=== PATIENT | male | born 1965 | race Caucasian/White ===

== ENCOUNTER 2016-04-24 23:40 | Emergency (ER) | payer MEDICAID ==
--- NOTE | 2016-04-25 00:01 | ED Physician Chart ---
Chief Complaint/HPI - Patient Information Date Seen:: 04/24/16 Time Seen:: 23:55 Chief Complaint:: right foot pain History of Present Illness:: tripped and fell earlier today fracturing right foot. Splint placed at [facility]. Patient states he does not have the money to buy the [place] which was prescribed. Historian:: Patient Review of Systems - Review of Systems General/Constitutional: No fever, No chills Skin: No skin lesions Head: No headache Eyes: No loss of vision ENT: No earache Neck: No neck pain Cardio Vascular: No chest pain, No palpitations Pulmonary: No SOB GI: No nausea, No vomiting G/U: No dysuria, No hematuria Musculoskeletal: Bone or joint pain Psychiatric: No prior psych history, No depression, No anxiety Hematopoietic: No bruising Allergic/Immuno: No urticaria Neurological: No syncope Past Medical History - Past Medical History Past Medical History: DM Family History: Heart disease Social History: Non Smoker, Alcohol Surgical History: other (right hip) Psychiatricy History: None Medication: Reviewed Physical Exam - Physical Examination General/Constitutional: Well-developed, well-nourished, Alert, No distress Head: Atraumatic Eyes: Lids, conjuctiva normal, PERRL Skin: Nl inspection, No rash ENMT: External ears, nose nl Neck: No nuchal rigidity Respiratory: Nl effort/Exclusion, Clear to Auscultation, No Wheeze/Rhonchi/Rales Cardio Vascular: RRR GI: No tenderness/rebounding/guarding, No organomegaly : No CVA tenderness Other Extremities comments:: short leg posterior splint right leg Neuro/Psych: Alert/oriented Misc: Normal back ED Septic Shock - . Is Septic Shock (SBP<90, OR Lactate>4 mmol\L) present?: No Reassessment (Disposition) - Reassessment Reassessment Condition:: Unchanged - Diagnosis Diagnosis:: fracture right foot - Aftercare/Follow up Instructions Aftercare/Follow-Up Instructions:: Refer to Discharge Instructions - Patient Disposition Discharge/Transfer:: Home Condition at Disposition:: Stable, Unchanged
== END 2016-04-25 00:20 | disposition home or self-care (01) ==
LOC: ER 23:40
DX: S92.901A Unspecified fracture of right foot, initial encounter for closed fracture (principal); E11.9 Type 2 diabetes mellitus without complications; W01.0XXA Fall on same level from slipping, tripping and stumbling without subsequent striking against object, initial encounter; Y93.89 Activity, other specified; Y92.89 Other specified places as the place of occurrence of the external cause; Y99.8 Other external cause status
CPT/HCPCS: Z7502